=== PATIENT | female | born 1970 | race African-American/Black ===

== ENCOUNTER → 2018-06-27 | Outpatient (CLI) | payer BC ==
[2018-06-27 13:07] VITALS: BP 137/76
--- NOTE | 2018-06-27 13:13 | NUR ---
Pt admitted to [facility] holding room 9 for endovenous laser ablation with Dr. Martel. Identity confirmed with pt and her ID band. No known allergies confirmed. Permit signed. Tahmina Kim in to see pt prior mto procedure. Valium 20 mg po given for procedure per order of Dr. Martel.
--- NOTE | 2018-06-27 13:42 | NUR ---
Pt wide awake after initial dose of valium 20 mg. 2nd dose of 10 mg valium PO given.
--- NOTE | 2018-06-27 14:15 | NUR ---
Procedure complete. right leg with ABD and kerlix applied. Compression stocking on right leg.
--- NOTE | 2018-06-27 14:38 | NUR ---
Pt discharged to home per order of . Transported to [facility] per transporter and wheelchair. [place] driving .
== END | disposition home or self-care (01) ==
LOC: SPEC 06:24
DX: I87.2 Venous insufficiency (chronic) (peripheral) (principal); I87.391 Chronic venous hypertension (idiopathic) with other complications of right lower extremity; M79.604 Pain in right leg